=== PATIENT | female | born 1930 | race Caucasian/White ===

== ENCOUNTER 2018-10-01 08:40 | Outpatient (CLI) | payer MEDICARE, BC ==
--- NOTE | 2018-10-01 10:45 | CT ---
CT CHEST WITH IV CONTRAST: CT ABDOMEN AND PELVIS WITH IV CONTRAST: HISTORY: Lymphoma. Restaging. FINDINGS: The lungs are hyperinflated with scattered areas of parenchymal scarring. At the anterior aspect of the right upper lobe, a 0.3 cm, noncalcified nodule is present. At the superior segment of the left lower lobe, a 0.3 cm nodule is associated with an area of scarring. No pleural fluid or pneumothorax . Nonenlarged lymph nodes are scattered about the mediastinum. Calcification in the arterial struct ures. Bovine origin of the great vessels at the aortic arch. Degenerative changes throughout the th oracolumbar spine. Small hiatal hernia. Exophytic cyst projecting anteriorly from the right kidney measures up to 4.2 cm. Small, nonspecific, low density nodule within the left thyroid lobe. On the axial images, at the level of the renal veins, a low density area just to the left of the inferior ve na cava appears that it could represent an aortocaval lymph node. Coronal images show that this is a part of the venous system, connected to the inferior vena cava. The urinary bladder is decompressed . No bowel abnormalities are evident. IMPRESSION: 1. No reliable evidence of recurrent lymphoma. 2. Tiny bilateral lung nodules are as detailed above. 3. Chronic obstructive pulmonary disease. 4. Atherosclerosis. 5. Small hiatal hernia. POS: [facility]
[2018-10-01] MEDS ORDERED: ISOVUE-370 76%-LOCM 1 ML ONE (13:31)
== END 2018-10-01 08:41 | disposition home or self-care (01) ==
LOC: BICCT 08:40
PROVIDERS: ATTEND Internal Medicine Medical Oncology
DX: C85.93 Non-Hodgkin lymphoma, unspecified, intra-abdominal lymph nodes (principal); J44.9 Chronic obstructive pulmonary disease, unspecified; I70.90 Unspecified atherosclerosis; R91.8 Other nonspecific abnormal finding of lung field
CPT/HCPCS: 71260; 74177; 82565

== ENCOUNTER 2019-01-19 13:37 | Emergency (ER) | payer MEDICARE, BC ==
--- NOTE | 2019-01-19 14:57 | RAD ---
THREE VIEWS OF LUMBAR SPINE: DATE: 01/19/2019. HISTORY: Right sacroiliac joint pain. Right hip pain for 3 weeks. FINDINGS: There are 5 [id number] lumbar-type vertebral bodies. There is mild right convex curvature of th e lumbar spine. The vertebral body heights appear to be within normal limits. The lateral view is s lightly rotated. Vertebral body heights do appear to be within normal limits, and no obvious fractur e or subluxation is seen involving the lumbar spine. There are facet degenerative changes in the low er lumbar spine. Vascular calcifications are seen in the abdominal aorta and involving the iliac art eries. There is osteopenia. IMPRESSION: 1. Osteopenia and degenerative changes of the lumbar spine. 2. No fracture or subluxation. 3. Vascular calcifications. POS: [facility]
== END 2019-01-19 14:57 | disposition home or self-care (01) ==
LOC: SCSER 13:37
DX: M51.36 Other intervertebral disc degeneration, lumbar region (principal); M85.88 Other specified disorders of bone density and structure, other site; I10 Essential (primary) hypertension; F41.9 Anxiety disorder, unspecified; F32.9 Major depressive disorder, single episode, unspecified; Z79.899 Other long term (current) drug therapy; Z79.51 Long term (current) use of inhaled steroids
CPT/HCPCS: 72100

== ENCOUNTER 2019-01-23 14:25 | Outpatient (CLI) | payer MEDICARE, BC ==
--- NOTE | 2019-01-23 15:12 | RAD ---
AP AND OBLIQUE VIEWS SI JOINTS: HISTORY: Hip pain for the past month. FINDINGS: AP and oblique views of the SI joints demonstrate the SI joints to be unremarkable. The sacrum is un remarkable with no definite evidence of abnormality seen. IMPRESSION: Unremarkable AP and oblique views sacroiliac joints. POS: [facility]
== END 2019-01-23 14:26 | disposition home or self-care (01) ==
LOC: SCSRAD 14:25
PROVIDERS: ATTEND Family Medicine
DX: M53.3 Sacrococcygeal disorders, not elsewhere classified (principal)
CPT/HCPCS: 72202

== ENCOUNTER 2019-04-27 13:58 | Outpatient (CLI) | payer MEDICARE, BC ==
--- NOTE | 2019-04-27 14:22 | RAD ---
Left RIBS 3 views HISTORY: Left rib pain. FINDINGS: Old healed injuries of the lateral aspects of left ribs 6 and 7. No displaced rib fracture or pneumothorax are apparent. Calcification at the aortic arch. Dystrophic calcification at the left rotator cuff insertion. IMPRESSION: No acute rib abnormalities are demonstrated Atherosclerosis. Left rotator cuff calcific tendinosis.
== END 2019-04-27 13:59 | disposition home or self-care (01) ==
LOC: SCSRAD 13:58
PROVIDERS: ATTEND Family Medicine
DX: R07.89 Other chest pain (principal); I70.0 Atherosclerosis of aorta; M75.92 Shoulder lesion, unspecified, left shoulder